=== PATIENT | female | born 1995 | race Caucasian/White ===

== ENCOUNTER 2025-03-07 11:11 | Inpatient (IN) ==
[2025-03-07] MEDS: MAGNESIUM SULFATE 1GM / D5W BAG IV ONE (11:31)
[2025-03-07] MEDS: PLASMA-LYTE A 1,000 ML IV ONE ×2 (11:31→12:33)
[2025-03-07] MEDS: ALBUT/IPRATROP 3MG/0.5MG NEB 3 ML VIAL ONE (11:31)
[2025-03-07] MEDS: MAGNESIUM SULFATE / D5W 1 GM/100 ML BAG IV SCH (11:31)
[2025-03-07] MEDS: ALBUT/IPRATROP 3MG/0.5MG NEB 3 ML VIAL INH STA (11:32)
--- NOTE | 2025-03-07 11:35 | Emergency Department Note ---
Impression & Plan Asthma with severe exacerbation, Tachycardia, Influenza A, Acute hypoxic respiratory failure, Hypokalemia ED Provider Note NAME: MELANIE JACKMAN AGE: 29 SEX: F : 1995 ARRIVES VIA: Ambulance INFORMANT: Patient, EMS ED PROVIDER(S): Severiano Torres DO CHIEF COMPLAINT: SOB HPI: This is a 29-year-old female with the PMHx of poorly controlled asthma presenting to [facility] for further evaluation of shortness of breath. Patient is accompanied by EMS who provide additional history. EMS states the patient was tachycardic and tachypneic with complaints of asthma in the setting of influenza A. Patient was given a DuoNeb and route to the hospital. Patient reports severe shortness of breath and chest pain that has been worsening since taking her morning medications. Patient reports that she took steroids including her first dose of methylprednisolone pack this morning. She also took Tamiflu. Patient reports she is having severe shortness of breath and wheezing. She also reports chest tightness. She reports mild nausea. Patient states that her asthma was previously well-controlled while in [place]. She states since moving to [place] it has significantly worsened. She does admit that she is not super compliant with her medications and inhalers. Patient states her symptoms have severely worsened since her emergency department visit overnight. They deny fever or chills. No cough or congestion. Denies chest pain or palpitations. No shortness of breath. They deny abdominal pain, nausea and vomiting. No urinary complaints. No recent changes in bowel movements. Patient denies recent changes in medications or OTC supplements. Patient offers no other complaints, today. ADDITIONAL HISTORY OBTAINED: Per HPI Chronic Medical/Social Conditions Affecting Care: Per HPI PAST MEDICAL HISTORY: See Below PAST SURGICAL HISTORY: See Below FAMILY HISTORY: See Below SOCIAL HISTORY: See Below HOME MEDICATIONS: See Below ALLERGIES: See Below VITALS: See Below PHYSICAL EXAMINATION: GENERAL: Sitting up in bed, alert, ill appearing, well nourished, no distress, non-toxic EYE EXAM: normal conjunctiva. OROPHARYNX: no exudate, no erythema, lips, buccal mucosa, and tongue normal and mucous membranes are dry NECK: supple, no nuchal rigidity, no adenopathy, non-tender LUNGS: patient is mildly tachypneic. Patient is severely dyspneic. She has inspiratory wheeze with worsening expiratory wheezing HEART: no murmurs, tachycardic rate, regular rhythm ABDOMEN: abdomen soft, non-tender, no masses, no rebound or guarding. BACK: Back is symmetrical on inspection and there is no deformity, no midline tenderness, no CVA tenderness. SKIN: no rashes and no bruising UPPER EXTREMITIES: upper extremities are grossly normal. LOWER EXTREMITIES: No pitting edema. NEURO EXAM: Normal sensorium, GCS 15, normal speech, no gross weakness of arms, no gross weakness of legs. MEDICAL DECISION MAKING: Differential diagnoses includes but not limited to ACS, unstable angina, dysrhythmia, PNA, hypervolemia/pulmonary edema, CHF exacerbation, COPD exacerbation, PE, pneumothorax, pericardial effusion, cardiac tamponade, anxiety/psychogenic, viral URI In summary, this is a 29 year old female who presented with SOB. Differential as above. Nursing notes and pertinent past medical records reviewed. Vital signs reviewed and the patient is tachypneic, hypoxic and tachycardic. Patient's symptoms likely related to his severe asthma exacerbation in the setting of influenza A infection which is known. Patient was placed on low-flow nasal cannula with improvement. History and presentation revealed recent ED visit overnight, which was reviewed by me. Physical examination revealed as above. As a result of my initial evaluation, the patient was in the emergency department overnight and diagnosed with an asthma exacerbation secondary to influenza A. Her symptoms have severely worsened. Patient is now tachycardic and tachypneic with mild hypoxia. Low flow nasal cannula applied with improvement. Diffuse wheezing on pulmonary auscultation. Patient's asthma has worsened. Diagnostics interpreted by me include EKG and cardiac monitoring as listed below: -Cardiac Monitoring: An order was placed for continuous cardiac monitoring. The monitor shows a rate of 100-150s with regular rhythm. -ECG: that she has sinus tachycardia at a rate of [address] segment changes to suggest STEMI. Rate dependent changes present. Intervals otherwise within normal limits. Patient completed laboratory studies and imaging. Results independently interpreted by me are leukopenia and mild acidosis. Patient had a negative test yesterday. There is no significant electrolyte derangements or significant kidney dysfunction from baseline. No changes in LFTs. Potassium noted to be low, PO replenishment with 40 mEq KCl ordered. Procalcitonin normal and doubt serious bacterial infection. The patient was managed withDuoNeb on arrival. The patient received a DuoNeb prior to arrival with EMS. Patient will be managed further with an hour-long albuterol treatment. She was also given 2 g of IV magnesium over 30 minutes. Patient has already received steroids. IV fluid resuscitation ordered and she received a total of 2 L of crystalloid resuscitation. Patient also was managed with Tylenol and Toradol. Patient has a serious asthma exacerbation in the setting of influenza A. While the patient is tachycardic and tachypneic with mild hypoxia, I believe her symptoms are more likely explained by an acute asthma exacerbation secondary to influenza rather than ACS or PE. Patient's symptoms are improving with albuterol treatment. As well as above therapeutics. Patient still remains on low-flow nasal cannula intermittently. Given her repeat presentation to the emergency department and poorly controlled asthma, I do recommend admission to the hospital for respiratory hygiene. Further admission criteria met given persistent tachycardia. Patient was given IV azithromycin for atypical coverage of pneumonia. This will likely benefit her in the setting of an anti-inflammatory component as well. Patient has significant concerns with inpatient admission given lack of insurance. We had a group discussion between me, the patient, the patient's and and case management. Case management was able to speak with the patient and will offer her assistance in obtaining insurance versus medical assistance. Patient agreeable to stay in the hospital. Patient was subsequently discussed with the hospitalist team for admission. Ultimately, the decision was made to admit the patient for Severe asthma exacerbation secondary to influenza A complicated by acute hypoxic respiratory failure and persistent tachycardia. I discussed the case with the hospitalist service via telephone/[employer] and they are agreeable to admit the patient to their services. Based on the above, including the patient's age, coexisting illnesses, labs, imaging, and exam findings the decision to treat as an inpatient. I discussed the patient with the hospitalist team who recommended admission to their services. They received the medications, treatments, interventions indicated above and their condition remained guarded. I discussed my findings with the patient and their family and they understand and agree with the treatment plan. All patient / family questions were answered to their satisfaction. Consults/Care Managements Discussions: Per [facility] ER treatment provided: See above Procedures: None Critical Care: I have personally spent 35 minutes of critical care time in direct management of this patient. This includes bedside care, interpretation of diagnostic studies, and testing, discussion with consultants, patient, and family members, and other require inpatient management activities. This 35 minutes is in excess of all separately billable procedures. The chart was completed utilizing [employer] Speech voice recognition software. Grammatical errors, random word insertions, pronoun errors, and incomplete sentences are an occasional consequence of this system due to software limitations, ambient noise, and hardware issues. Any formal questions or concerns about the content, text, or information contained within the body of this dictation should be directly addressed to the physician for clarification. Past Med/Surg History Problem List (Updated 03/07/25 @ 17:41 by Severiano Torres DO) Hypokalemia (Acute) Acute hypoxic respiratory failure (Acute) Influenza A (Acute) Tachycardia (Acute) Asthma with severe exacerbation (Acute) Asthma exacerbation (Acute) Fever (Acute) Influenza A (Acute) Tachycardia (Acute) Medical History Asthma with acute exacerbation Social History Smoking Status: Never smoker Preferred Language: Croatian Feels Safe at Home: Yes Allergies Allergies Allergy/AdvReac Type Severity Reaction Status Date / Time shellfish derived Allergy Swelling Unverified 12/11/24 21:24 of Lip/Tongue/Throat Home Meds Home Medications Medication Instructions Recorded Confirmed cetirizine 10 mg capsule 10 mg PO DAILY 12/11/24 03/07/25 Previous Rx's Medication Instructions Recorded albuterol sulfate 90 mcg/actuation 2 puffs inhalation 6XD PRN 08/10/24 aerosol inhaler shortness of breath or wheezing #6.7 grams methylprednisolone 4 mg tablets in See Rx Instructions .Route 03/07/25 a dose pack (Medrol (Jigar)) .COMPLEX #21 ea oseltamivir 75 mg capsule (Tamiflu) 75 mg PO BID 5 days #10 caps 03/07/25 Results & Data (ED) Vital Signs Vital Signs - 24 hr 03/07/25 11:05 03/07/25 11:20 03/07/25 11:24 Temperature 37.2 C 37.2 C Temperature Source Oral Oral Pulse Rate 154 H Pulse Rate [Right Brachial] 154 H Pulse Rate from SpO2 Sensor Pulse Rhythm Regular Pulse Rhythm [Right Brachial] Regular Pulse Strength Normal Pulse Strength [Right Brachial] Normal Respiratory Rate 22 22 Respiratory Effort / Characteristics Non-Labored Non-Labored Respiratory Depth Normal Normal Respiratory Pattern Regular Regular Blood Pressure 102/79 Blood Pressure [Right Arm] 102/79 Blood Pressure Mean 86 Blood Pressure Mean [Right Arm] 86 Blood Pressure Position Sitting Blood Pressure Position [Right Arm] Sitting Pulse Oximetry 88 L 88 L 88 L Oxygen Delivery Method Room Air Room Air Room Air Oxygen Flow Rate Sepsis Recent Fever Within 48 Hours No Sepsis New/Unexplained Change in Mental Status N/A Sepsis Action Taken by Nursing Physician Notified 03/07/25 11:25 03/07/25 11:45 03/07/25 12:15 Temperature Temperature Source Pulse Rate 140 H Pulse Rate [Right Brachial] 127 H Pulse Rate from SpO2 Sensor Pulse Rhythm Pulse Rhythm [Right Brachial] Pulse Strength Pulse Strength [Right Brachial] Respiratory Rate 20 Respiratory Effort / Characteristics Non-Labored Respiratory Depth Normal Respiratory Pattern Blood Pressure Blood Pressure [Right Arm] 102/79 Blood Pressure Mean Blood Pressure Mean [Right Arm] 86 Blood Pressure Position Blood Pressure Position [Right Arm] Pulse Oximetry 94 100 Oxygen Delivery Method Nasal Cannula Room Air Oxygen Flow Rate 2 Sepsis Recent Fever Within 48 Hours Sepsis New/Unexplained Change in Mental Status Sepsis Action Taken by Nursing 03/07/25 13:00 03/07/25 15:00 03/07/25 15:30 Temperature Temperature Source Pulse Rate 137 H 112 H 105 H Pulse Rate [Right Brachial] Pulse Rate from SpO2 Sensor 136 H 112 H 103 H Pulse Rhythm Pulse Rhythm [Right Brachial] Pulse Strength Pulse Strength [Right Brachial] Respiratory Rate 22 17 19 Respiratory Effort / Characteristics Respiratory Depth Respiratory Pattern Blood Pressure 103/71 94/66 L 103/73 Blood Pressure [Right Arm] Blood Pressure Mean 81 75 87 Blood Pressure Mean [Right Arm] Blood Pressure Position Blood Pressure Position [Right Arm] Pulse Oximetry 96 96 97 Oxygen Delivery Method Room Air Room Air Nasal Cannula Oxygen Flow Rate 2 Sepsis Recent Fever Within 48 Hours Sepsis New/Unexplained Change in Mental Status Sepsis Action Taken by Nursing 03/07/25 15:46 03/07/25 16:00 Temperature Temperature Source Pulse Rate 113 H 103 H Pulse Rate [Right Brachial] Pulse Rate from SpO2 Sensor 104 H Pulse Rhythm Pulse Rhythm [Right Brachial] Pulse Strength Pulse Strength [Right Brachial] Respiratory Rate 15 Respiratory Effort / Characteristics Respiratory Depth Respiratory Pattern Blood Pressure 100/73 Blood Pressure [Right Arm] Blood Pressure Mean 82 Blood Pressure Mean [Right Arm] Blood Pressure Position Blood Pressure Position [Right Arm] Pulse Oximetry 96 Oxygen Delivery Method Nasal Cannula Oxygen Flow Rate 2 Sepsis Recent Fever Within 48 Hours Sepsis New/Unexplained Change in Mental Status Sepsis Action Taken by Nursing Laboratory Data 03/07/25 11:03/07/25: Lab Results 03/07/25 Range/Units 11: WBC 2.44 L (4.8-10.8) K/ul RBC 4.53 (4.20-5.40) M/uL Hgb 13.9 (12.0-16.0) g/dL Hct 38.7 (37.0-47.0) % MCV 85.4 (80.0-100.0) fL MCH 30.7 (25.0-34.0) pg MCHC 35.9 (32.0-36.0) g/dL RDW Std Deviation 41.1 (36.4-46.3) fL RDW Coeff of [place] 13.2 (11.5-14.5) % Plt Count 223 (130-400) K/uL MPV 9.8 (9.4-12.4) fL Immature Gran % (Auto) 0.4 % Neut % (Auto) 81.1 % Lymph % (Auto) 15.6 % Beckham % (Auto) 2.9 % Eos % (Auto) 0.0 % Baso % (Auto) 0.0 % Neut # (Auto) 1.98 (1.40-6.50) K/uL Lymph # (Auto) 0.38 L (1.20-3.40) K/uL Beckham # (Auto) 0.07 L (0.11-0.59) K/uL Eos # (Auto) 0.00 (0.00-0.50) K/uL Baso # (Auto) 0.00 (0.00-0.20) K/uL Immature Gran # (Auto) 0.01 (0.01-0.20) K/uL VBG pH 7.33 L (7.36-7.41) VBG pCO2 39 (38-50) mmHg VBG pO2 36 mmHg VBG HCO3 21 mmol/L VBG O2 Saturation < 60.0 % VBG Base Excess -4.9 mEq/L Sodium 137 (136-145) mmol/L Potassium 3.4 L (3.5-5.1) mmol/L Chloride 105 (98-107) mmol/L Carbon Dioxide 21 (21-32) mmol/L Anion Gap 11 (3-11) BUN 6 (6-23) mg/dl Creatinine 0.57 L (0.6-1.2) mg/dl Est Cr Clr Drug Dosing 122.6 ml/min eGFR 127.66 BUN/Creatinine Ratio 10.5 (10-20) Glucose 156 H (70-99(Fasting)) mg/dl Calcium 9.1 (8.6-10.3) mg/dl Magnesium 2.0 (1.7-2.4) mg/dl Total Bilirubin 0.5 (0.2-1.0) mg/dl AST 19 (13-39) U/L ALT 19 (7-52) U/L Alkaline Phosphatase 74 (34-104) U/L Troponin I High Sens < 2.3 (0-14) pg/ml Total Protein 8.1 (6.0-8.3) gm/dl Albumin 5.1 H (3.4-5.0) gm/dl Globulin 3.0 (2.5-4.0) gm/dl Albumin/Globulin Ratio 1.7 (0.9-2) Procalcitonin 0.03 (0-0.5) ng/ml HCG, Qual Negative (Negative) Administered Medications Discontinued Medications Albuterol (Albut/Ipratrop 3mg/0.5mg Neb 3 Ml Vial) 3 ml INH NOW STA Stop: 03/07/25 11:20 Last Admin: 03/07/25 11:32 Dose: 3 ml Documented By: ES Albuterol (Albut/Ipratrop 3mg/0.5mg Neb 3 Ml Vial) Confirm Administered Dose 3 ml .ROUTE .STK-MED ONE Stop: 03/07/25 11:21 Last Admin: 03/07/25 11:31 Dose: Not Given Documented By: ES Albuterol (Albuterol 0.083% Nebu Soln 3 Ml Vial) 10 mg NEB NOW STA; Protocol Stop: 03/07/25 11:56 Last Admin: 03/07/25 12:08 Dose: 10 mg Documented By: ES Magnesium Sulfate/Dextrose (Magnesium Sulfate / D5w) 1 gm in 100 mls @ 100 mls/hr IV Q1H WES Stop: 03/07/25 13:29 Last Infusion: 03/07/25 12:00 Dose: Infused Documented By: Admin: 03/07/25 11:40 Dose: 400 mls/hr Documented By: Infusion: 03/07/25 11:40 Dose: Infused Documented By: Admin: 03/07/25 11:31 Dose: 400 mls/hr Documented By: IRLANDA Parenteral Electrolytes (Plasma-Lyte A Ph 7.4) 1,000 mls @ 999 mls/hr IV .Q1H1M ONE Stop: 03/07/25 12:19 Last Infusion: 03/07/25 12:30 Dose: Infused Documented By: Admin: 03/07/25 11:31 Dose: 999 mls/hr Documented By: IRLANDA Azithromycin (Zithromax) 500 mg in 255 mls @ 127.5 mls/hr IV NOW ONE Stop: 03/07/25 13:52 Last Infusion: 03/07/25 15:15 Dose: Infused Documented By: Admin: 03/07/25 12:08 Dose: 127.5 mls/hr Documented By: IRLANDA Acetaminophen (Ofirmev) 1,000 mg in 100 mls @ 400 mls/hr IV NOW STA Stop: 03/07/25 12:14 Last Infusion: 03/07/25 12:30 Dose: Infused Documented By: Admin: 03/07/25 12:08 Dose: 400 mls/hr Documented By: IRLANDA Parenteral Electrolytes (Plasma-Lyte A Ph 7.4) 1,000 mls @ 999 mls/hr IV .Q1H1M ONE Stop: 03/07/25 13:15 Last Infusion: 03/07/25 13:34 Dose: Infused Documented By: Admin: 03/07/25 12:33 Dose: 999 mls/hr Documented By: IRLANDA Ketorolac Tromethamine (Ketorolac Tromethamine 15 Mg/Ml Vial) 15 mg IV NOW STA Stop: 03/07/25 12:01 Last Admin: 03/07/25 12:08 Dose: 15 mg Documented By: IRLANDA Magnesium Sulfate/Dextrose (Magnesium Sulfate 1gm / D5w Bag) Confirm Administered Dose 2 gm IV .STK-MED ONE Stop: 03/07/25 11:21 Last Admin: 03/07/25 11:31 Dose: Not Given Documented By: IRLANDA Potassium Chloride (Potassium Chloride Crtab 20 Meq Tabcr) 40 meq PO NOW STA Stop: 03/07/25 12:16 Last Admin: 03/07/25 12:34 Dose: 40 meq Documented By: ES Imaging Data Radiologist's Impression: Chest X-Ray 03/07/25 11:20 XR chest 1V portable CLINICAL HISTORY: Dyspnea. COMPARISON STUDY: Chest radiograph March 06, 2025. FINDINGS: Lung volumes are normal. Lungs are clear. There is no pneumothorax or pleural effusion. Cardiac size is normal. Mediastinal contours are normal. There is no evidence for pulmonary edema. IMPRESSION: No acute cardiopulmonary findings. ACT 112: Negative or not required by law. Electronically signed by: Lion Lopez M.D. 03/07/2025 12:01 PM Discharge Plan Visit Data Chief Complaint: Flu Like Symptoms Stated Complaint: TACHYCARDIA ,SOB, +FLU A ED Provider: Severiano Torres Discharge Problem: Asthma with severe exacerbation, Tachycardia, Influenza A, Acute hypoxic respiratory failure, Hypokalemia Patient Disposition: Admitted As Inpatient Condition: Serious Forms Stand Alone Forms: My [facility] Prescriptions Prescriptions: No Action albuterol sulfate 90 mcg/actuation HFA aerosol inhaler 2 puffs INH 6XD PRN (Reason: shortness of breath or wheezing) Qty: 6.7 0RF methylprednisolone [Medrol (Jigar)] 4 mg tablets,dose pack See Rx Instructions .ROUTE .COMPLEX Qty: 21 0RF Rx Instructions: take as directed on package oseltamivir [Tamiflu] 75 mg capsule 75 mg PO BID 5 Days Qty: 10 0RF cetirizine 10 mg Capsule 10 mg PO DAILY Referrals Referrals: PCP,NO [Primary Care Provider] -
[2025-03-07 11:54] LABS: Base Excess VBG -4.9 mEq/L; HCO3 VBG 21 mmol/L; Hematocrit (blood only) 38.7 % (37.0-47.0); Hemoglobin 13.9 g/dL (12.0-16.0); Immature Granulocytes # (auto) 0.01 K/uL (0.01-0.20); Immature Granulocytes % (auto) 0.4 %; Mean Corpuscular Hemoglobin 30.7 pg (25.0-34.0); Mean Corpuscular Volume 85.4 fL (80.0-100.0); Oxygen Saturation VBG < 60.0 %; PCO2 VBG 39 mmHg (38-50); PO2 VBG 36 mmHg; Platelet Count 223 K/uL (130-400); RDW Standard Deviation 41.1 fL (36.4-46.3); Red Blood Count 4.53 M/uL (4.20-5.40); White Blood Count 2.44 K/ul (4.8-10.8); pH VBG 7.33 (7.36-7.41)
[2025-03-07] MEDS ORDERED: MAGNESIUM SULFATE / D5W 1 GM/100 ML BAG IV SCH (12:00)
--- NOTE | 2025-03-07 12:02 | XRay Report ---
XR chest 1V portable CLINICAL HISTORY: Dyspnea. COMPARISON STUDY: Chest radiograph March 06, 2025. FINDINGS: Lung volumes are normal. Lungs are clear. There is no pneumothorax or pleural effusion. Car diac size is normal. Mediastinal contours are normal. There is no evidence for pulmonary edema. IMPRESSION: No acute cardiopulmonary findings. ACT 112: Negative or not required by law. Electronically signed by: Lion Lopez M.D. 03/07/2025 12:01 PM
[2025-03-07] MEDS: ACETAMINOPHEN 1,000 MG/100 ML VIAL IV STA (12:08)
[2025-03-07] MEDS: AZITHROMYCIN 500 MG/255 ML BAG IV ONE (12:08)
[2025-03-07] MEDS: ALBUTEROL 0.083% NEBU SOLN 3 ML VIAL NEB STA ×2 (12:08→22:53)
[2025-03-07] MEDS: KETOROLAC TROMETHAMINE 15 MG/ML VIAL IV STA (12:08)
[2025-03-07 12:10] LABS: Alanine Aminotransferase 19 U/L (7-52); Albumin Globulin Ratio 1.7 (0.9-2); Albumin Level 5.1 gm/dl (3.4-5.0); Alkaline Phosphatase 74 U/L (34-104); Anion Gap 11 (3-11); Bilirubin,Total 0.5 mg/dl (0.2-1.0); Blood Urea Nitrogen 6 mg/dl (6-23); Calcium 9.1 mg/dl (8.6-10.3); Carbon Dioxide 21 mmol/L (21-32); Chloride 105 mmol/L (98-107); Creatinine Clr Calc Pharmacy 122.6 ml/min; Globulin 3.0 gm/dl (2.5-4.0); Glucose 156 mg/dl (70-99(Fasting)); Magnesium 2.0 mg/dl (1.7-2.4); Potassium 3.4 mmol/L (3.5-5.1); Sodium 137 mmol/L (136-145); Total Protein 8.1 gm/dl (6.0-8.3)
[2025-03-07] MEDS: POTASSIUM CHLORIDE CRTAB 20 MEQ TABCR PO STA (12:34)
--- NOTE | 2025-03-07 16:05 | History & Physical Report ---
Date of Service March 07, 2025 Assessment & Plan (1) Influenza A: (2) Asthma with acute exacerbation: Plan Pt is a 29 F with a PMHx significant for Asthma who presented to the ED c/o SOB after a recent diagnosis of Influenza. Pt was seen in the ED on 03/06 where the pt tested positive for Influenza A; CXR at that time was negative for any acute cardiopulmonary findings and pt was d/c home with Tamiflu and a Medrol Dose pack. Pt represents on 03/07 with worsening dyspnea. #Influenza A - 03/07 CXR w/ no acute cardiopulmonary findings; pt conversationally dyspneic -Droplet Precautions -Tamiflu 75mg BID -Prednisone 30mg PO BID, pt states that 60mg of Medrol dose pack caused intolerable palpitations, pt agreeable to trying split dose -DuoNeb Q4HWA -Albuterol Hfa prn -Supplemental O2 (Goal Sat 90%, titrate as tolerated) -Incentive Spirometry, Flutter valve -Guaifenesin Q12 prn, congestion -Tylenol Q6H prn, pain/fever -IVF NSS 1000mL @125mL/hr x1 -CBC, BMP in AM #Asthma w/ mild exacerbation - -Continue Citirizine -Continue Albuterol PRN, as above -DuoNebs and Steroids, as above -O2 supplementation as above VTE Proph: SCDs, deferred chemoprophylaxis d/t pt being low risk Admit: Med/Tele History of Present Illness Chief Complaint: Influenza, worsening SOB Primary Care Provider: NO PCP Pt is a 29 F with a PMHx significant for Asthma who presented to the ED c/o SOB after a recent diagnosis of Influenza in the outpatient setting. 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 She states that the following day 03/05, she began to develop a cough. She notes that she began to feel feverish/chill in the evening of 03/05 and that this progressed into 03/06. 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 Throughout that day, her SOB continued to worsen and she began to use the inhaler that she has available at home. She notes that this only provided her with minimal relief. Pt states that later that evening, her SOB became so severe that she was concerned she was experiencing an Asthma attack and came into the [facility] ED on 03/06 where she tested positive for Influenza A and was discharged home with Tamiflu and a Medrol Dose Pack. Pt notes that after returning home from Prior ED visit, she took the medications as Rx and still continued to experience worsening SOB. She additionally notes that this AM, after taking the steroids, she began to experience extreme palpitations. Pt endo rses fatigue, feeling feverish (did not measure), chills, difficulty sleeping, congestion, rhinorrhea, sore throat, cough, dyspnea, wheezing, pleuritic CP, N/V, x1 episode of diarrhea on 03/05, palpitations (w/ steroid use), loss of appetite. Pt denies H/A, changes in hearing or vision, hemoptysis, abdominal pain, frequency, urgency, and dysuria. Pt was brought to the ED by her , who was present at bedside during the encounter. While in the ED, the patient received a CXR that was without any acute cardiopulmonary findings which is consistent with CXR in ED on 03/06. Pt additionally received a DuoNeb treatment, which pt notes has helped with her breathing. She is currently on 2L/min NC w/ an O2 Sat of 96%. The Hospitalist team was then consulted. The pt is now being admitted for further evaluation and care. Allergies Allergy/AdvReac Type Severity Reaction Status Date / Time shellfish derived Allergy Swelling Unverified 12/11/24 21:24 of Lip/Tongue/Throat Home Medications Medication Instructions Recorded Confirmed Type albuterol sulfate 90 mcg/actuation 2 puffs inhalation 6XD PRN 08/10/24 03/07/25 Rx aerosol inhaler shortness of breath or wheezing #6.7 grams cetirizine 10 mg capsule 10 mg PO DAILY 12/11/24 03/07/25 History methylprednisolone 4 mg tablets in See Rx Instructions .Route 03/07/25 03/07/25 Rx a dose pack (Medrol (Jigar)) .COMPLEX #21 ea oseltamivir 75 mg capsule (Tamiflu) 75 mg PO BID 5 days #10 caps 03/07/25 03/07/25 Rx Past Med/Surg History Problem List (Updated 03/07/25 @ 17:41 by Severiano Torres DO) Hypokalemia (Acute) Acute hypoxic respiratory failure (Acute) Influenza A (Acute) Tachycardia (Acute) Asthma with severe exacerbation (Acute) Asthma exacerbation (Acute) Fever (Acute) Influenza A (Acute) Tachycardia (Acute) Medical History Asthma with acute exacerbation Social History Smoking Status: Never smoker Preferred Language: Serbian Feels Safe at Home: Yes Review of Systems Review of Systems: All systems reviewed & are unremarkable except as noted in Subjective Physical Exam Physical Exam: General: 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, at bedside VS: reviewed, remarkable - P 113, occasionally requiring 2L NC for O2 Skin: Warm and dry; no lesions or ulcerations Respiratory: Wheezing heard diffusely bilat; Pt is conversationally dyspneic Cardio: RRR no murmurs Abdomen: Round, normoactive BS x4, nontender to palpation MSK: FROM of extremities, no deformities Extremities: no edema Neuro: A&Ox4, cooperative Results & Data Results & Data Vital Signs (Past 12 Hours) Vital Signs Temp Pulse Pulse Resp BP BP Pulse Ox 03/07/25 15:46 113 H 03/07/25 15:00 112 H 17 94/66 L 96 03/07/25 13:00 137 H 22 103/71 96 03/07/25 12:15 127 H 20 102/79 100 03/07/25 11:45 140 H 03/07/25 11:25 94 03/07/25 11:24 99.0 F 154 H 22 102/79 88 L 03/07/25 11:20 88 L 03/07/25 11:05 99.0 F 154 H 22 102/79 88 L O2 Del Method O2 Flow Rate 03/07/25 15:46 03/07/25 15:00 Room Air 03/07/25 13:00 Room Air 03/07/25 12:15 Room Air 03/07/25 11:45 03/07/25 11:25 Nasal Cannula 2 03/07/25 11:24 Room Air 03/07/25 11:20 Room Air 03/07/25 11:05 Room Air Laboratory Results Reviewed: CBC, VBG, CMP, Procalcitonin Diagnostic Findings Reviewed: CXR PG Care Time/CCT Total # of Minutes Spent Total Time Spent with Patient: Total time spent is greater than 50% in coordination of care (as documented) at patient's floor/unit and/or counseling patient: Coding Level of Care Code 76402 INT INP/OBS CARE 3/75MIN Diagnoses Influenza A J10.1 Asthma with acute exacerbation J45.901
[2025-03-07 17:24] LABS: Pregnancy Test, Serum Negative (Negative)
[2025-03-07 18:33] LABS: Appearance Urine Clear (Clear); Bacteria Urine Automated None Seen (None Seen); Cast Urine Automated 0-2 /lpf (0-2); Glucose Urine UA Negative (Negative); WBC Urine Automated 0-5 /hpf (0-5)
--- NOTE | 2025-03-07 18:50 | Electrocardiogram Report ---
Test Reason : Blood Pressure : */* mmHG Vent. Rate : 158 BPM Atrial Rate : 158 BPM P-R Int : 132 ms QRS Dur : 84 ms QT Int : 240 ms P-R-T Axes : 77 25 22 degrees QTcB Int : 389 ms Sinus tachycardia Indeterminate axis Nonspecific ST abnormality Abnormal ECG When compared with ECG of 06-Mar-2025 23:59, (unconfirmed) ST now depressed in Inferior leads Nonspecific T wave abnormality no longer evident in Anterior leads Confirmed by Darren Rodriguez ([id number]) on 03/07/2025 6:50:05 PM Referred By: REFERRED SELF Confirmed By: Darren Rodriguez
[2025-03-07] MEDS: SODIUM CHLORIDE 0.9% 1,000 ML IV SCH (19:13)
[2025-03-07] MEDS ORDERED: ALBUTEROL HFA 8 GM INHALER INH PRN (21:00)
[2025-03-07] MEDS ORDERED: ACETAMINOPHEN 325 MG TAB PO PRN (21:00)
[2025-03-07] MEDS ORDERED: MELATONIN 3 MG TAB PO PRN (21:00)
[2025-03-07] MEDS ORDERED: SODIUM CHLORIDE 0.9% 1,000 ML IV ONE (21:00)
[2025-03-07] MEDS ORDERED: POLYETHYLENE (MIRALAX) 17 GM PACK PO PRN (21:00)
[2025-03-07] MEDS ORDERED: ONDANSETRON INJ 2 MG/ML 2 ML VIAL IV PRN (21:00)
[2025-03-07] MEDS: OSELTAMIVIR PHOSPHATE 75 MG CAP PO SCH (22:18)
[2025-03-07] MEDS: guaiFENesin 600 MG TABCR PO SCH (22:18)
[2025-03-07] MEDS: ALBUTEROL 0.083% NEBU SOLN 3 ML VIAL INH SCH (22:53)
--- NOTE | 2025-03-08 01:36 | Communication Note ---
Date of Service: March 08, 2025 Pt in room with significant other. She states significant other is now sick so at this point she wants to go home. Significant other states "I feel more sick the longer I am here." He was advised by staff that he does not need to stay with the pt if he is feeling unwell and could go home anytime. Pt reinforces that she would like to leave at this point. She has medrol pack for steroids and tamiflu from being here prior. She has removed the NC O2 herself. I advised her if she would like to leave she would need to sign out AMA. Pt agrees to sign out AMA. Advised to continue steroid back, tamiflu, and use her home inhaler more frequently today as needed. She is to f/u with PCP by end of week, return if symptoms worsen. Resident Activity Tracking Resident Involvement: Resident Care Provided Care Provided: Adult Hospital Medicine
[2025-03-08] MEDS: ALBUTEROL 0.083% NEBU SOLN 3 ML VIAL NEB STA (01:50)
[2025-03-08] MEDS ORDERED: CETIRIZINE HCL 10 MG TABLET PO SCH (09:00)
[2025-03-08] MEDS ORDERED: predniSONE 20 MG TAB PO SCH (09:00)
--- NOTE | 2025-03-08 16:16 | Discharge Summary ---
Discharge Summary Date of Service March 08, 2025 Principal Dx & Hospital Course #1 = Principal Diagnosis (1) Influenza A: Plan #Influenza A - Pt is a 29 F with a PMHx significant for Asthma who presented to the ED c/o SOB after a recent diagnosis of Influenza. Pt was seen in the ED on 03/06 where the pt tested positive for Influenza A; CXR at that time was negative for any acute cardiopulmonary findings and pt was d/c home with Tamiflu and a Medrol Dose pack. Pt represents on 03/07 with worsening dyspnea. Patient was then admitted to the hospital for further evaluation and care. Plan for patient was as listed below. Patient left AMA overnight from 03/07 to 03/08. -Droplet Precautions -Tamiflu 75mg BID -Prednisone 30mg PO BID, pt states that 60mg of Medrol dose pack caused intolerable palpitations, pt agreeable to trying split dose -DuoNeb Q4HWA -Albuterol Hfa prn -Supplemental O2 (Goal Sat 90%, titrate as tolerated) -Incentive Spirometry, Flutter valve -Guaifenesin Q12 prn, congestion -Tylenol Q6H prn, pain/fever -IVF NSS 1000mL @125mL/hr x1 -CBC, BMP in AM #Asthma w/ mild exacerbation - -Continue Citirizine -Continue Albuterol PRN, as above -DuoNebs and Steroids, as above -O2 supplementation as above VTE Proph: SCDs, deferred chemoprophylaxis d/t pt being low risk Dispo: PT LEFT AMA Admission HPI Per Admitting Provider Pt is a 29 F with a PMHx significant for Asthma who presented to the ED c/o SOB after a recent diagnosis of Influenza in the outpatient setting. 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 She states that the following day 03/05, she began to develop a cough. She notes that she began to feel feverish/chill in the evening of 03/05 and that this progressed into 03/06. 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 Throughout that day, her SOB continued to worsen and she began to use the inhaler that she has available at home. She notes that this only provided her with minimal relief. Pt states that later that evening, her SOB became so severe that she was concerned she was experiencing an Asthma attack and came into the [facility] ED on 03/06 where she tested positive for Influenza A and was discharged home with Tamiflu and a Medrol Dose Pack. Pt notes that after returning home from Prior ED visit, she took the medications as Rx and still continued to experience worsening SOB. She additionally notes that this AM, after taking the steroids, she began to experience extreme palpitations. Pt endorses fatigue, feeling feverish (did not measure), chills, difficulty sleeping, congestion, rhinorrhea, sore throat, cough, dyspnea, wheezing, pleuritic CP, N/V, x1 episode of diarrhea on 03/05, palpitations (w/ steroid use), loss of appetite. Pt denies H/A, changes in hearing or vision, hemoptysis, abdominal pain, frequency, urgency, and dysuria. Pt was brought to the ED by her , who was present at bedside during the encounter. While in the ED, the patient received a CXR that was without any acute cardiopulmonary findings which is consistent with CXR in ED on 03/06. Pt additionally received a DuoNeb treatment, which pt notes has helped with her breathing. She is currently on 2L/min NC w/ an O2 Sat of 96%. The Hospitalist team was then consulted. The pt is now being admitted for further evaluation and care. Discharge Plan Discharge Items Patient Disposition: Against Medical Advice Reason For Visit: INFLUENZA Condition on Discharge: Serious Activity: Resume your previous activity Non-emergency contact: Primary Care Provider Follow-up/Referrals: PCP,NO [Primary Care Provider] - [employer] Supervisor Provider Instructions: Follow up with your primary care before the end of the week. Return to the hospital if you feel shortness of breath, chest pain, worsening symptoms, or faint. Continue your steroids and Tamiflu as prescribed. You may use your home albuterol inhaler up to every 4 hours at home. If you need to use it every 4 hours for more than 24 hours, please return to the hospital or to your primary care. Pending Studies at Discharge: No Stand-Alone Forms: My [place], Smoking Cessation Medications and DC Order Prescriptions: Continued albuterol sulfate 90 mcg/actuation HFA aerosol inhaler 2 puffs INH 6XD PRN (Reason: shortness of breath or wheezing) Qty: 6.7 0RF methylprednisolone [Medrol (Jigar)] 4 mg tablets,dose pack See Rx Instructions .ROUTE .COMPLEX Qty: 21 0RF Rx Instructions: take as directed on package oseltamivir [Tamiflu] 75 mg capsule 75 mg PO BID 5 Days Qty: 10 0RF cetirizine 10 mg Capsule 10 mg PO DAILY Discharge Orders: Left Against Medical Advice (Routine); Ordered 03/08/25 Ordered By: Diane Whipple Admission Data Admit Date/Time: 03/07/25 17:42 Attending Provider: Meng Gilbert Admit Provider: Meng Gilbert Primary Care Provider: PCP,NO Hospital Stay Data Pending Results Patient Have Any Pending Studies at Discharge: No Supervising Physician Co-Signing Physician Notes The patient was not seen by me. Chart reviewed. Case discussed with HARRISON Montilla. Agree with assessment and plan. Total Time Total Time Spent Total Time Spent (In Minutes): Time spent day of discharge 15 minutes including direct patient care, medication reconciliation, documentation, review of labs and images, and coordination of care. Coding Level of Care Code 81039 IN/OBS DISCH 30 MIN/LESS Diagnoses Influenza A J10.1
== END 2025-03-08 02:11 | disposition left against medical advice (07) | DRG 194 ==
LOC: ED 11:11 → EDINP 17:42 → 2W 20:28
DX: J45.31 Mild persistent asthma with (acute) exacerbation; E87.20 Acidosis, unspecified; J10.1 Influenza due to other identified influenza virus with other respiratory manifestations